=== PATIENT | female | born 1935 | race Caucasian/White ===

== ENCOUNTER 2016-03-04 22:05 | Inpatient (IN) | payer OTHER ==
[~2016-03-04] VITALS: Ht 172.7 cm; Wt 79.0 kg
[~2016-03-04 22:05] MED LIST: ACETAMINOPHEN-1 EAC1 PO; ACETAMINOPHEN-1 EAC4 PO; ADULT LOW STREN81 M2 PO; ASPIR 8181 M1 PO; ASPIR-TRIN325 M1 PO; ASPIRIN E.C.81 M1 PO; ASPIRIN81 M1 PO; ATARAX,VISTARIL25 MG PO; AUGMENTIN875 MG PO; BACTRIM,SEPT1 TABLET PO; BYSTOLIC10 MG PO; CARAFATE1 GM PO; CARTIA XT240 MG PO; CATAPRES0.2 MG PO; CELEXA10 MG PO; CLONIDINE HCL0.1 MG PO; CLONIDINE HCL0.2 MG PO; CLOPIDOGREL75 MG PO; CO Q-10100 MG PO; CRESTOR20 MG PO; CYMBALTA60 MG PO; Cardizem CD,Cartia X PO; Ceftin PO; Coreg PO; DOCUSATE SODIU100 MG PO; ENDOCET 5-3251 EACH PO; FLEXERIL10 MG PO; Flagyl PO; GLUCOSAMINE &1 EAC1 PO; GLUCOSAMINE PO; GLYCOLAX225 GM PO; HYDROCHLOROTH12.5 M3 PO; HYDROCHLOROTH12.5 MG PO; HYDROCODON-ACE1 EAC7 PO; HYDROCODON-ACE1 EAC8 PO; Hydrodiuril,Oretic,E PO; IMDUR30 MG PO; IMDUR60 MG PO; K-DUR10 MEQ PO; LABETALOL HCL100 MG PO; LASIX20 MG PO; LISINOPRIL20 MG PO; LISINOPRIL40 MG PO; LO-DOSE ASPIRIN81 M2 PO; Levaquin PO; Lopressor PO; METAMUCIL; METAMUCIL CAPSU1 CAP PO; METOPROLOL TART50 MG PO; MIRALAX17 GM PO; NEXIUM40 MG PO; NIFEDICAL XL30 MG PO; NIFEDIPINE ER60 MG PO; NITROGLYCERIN0.4 MG SL; NITROSTAT0.4 MG SL; NORCO 7.5/321 TABLET PO; OMEGA; OMEGA 3 1,0001 EAC1 PO; OMEGA 3 500 SO1 EACH PO; PERCOCET 5/31 TABLET PO; PLAVIX75 MG PO; PRINIVIL40 MG PO; PROCARDIA XL60 MG PO; Protonix PO; RANITIDINE HCL300 M1 PO; RHINOCORT AQUA8.6 G1 NS; STOOL SOFTENER100 MG PO; SUCRALFATE1 GM PO; SYSTANE 0.3-0.1 EACH BOTH EYES; TOPROL XL50 MG PO; VICODIN,LORT1 TABLET PO; VITAMIN D-32000 UNI2 PO; VITAMIN D2000 INTUN PO; ZESTRIL,PRINIVI20 MG PO; ZESTRIL40 MG PO; Zestril,Prinivil PO; Zithromax PO; [UNRECOGNIZED DRUG - OTHER] PO
[2016-03-04 22:50] LABS: HEMATOCRIT 34.3 % (36.0-46.0); MCH 28.4 PG (29.0-34.0); MCHC 33.2 G/DL (30.0-36.0); MCV 85.3 FL (83-99); MEAN PLAT.VOLUME 9.3 uM^3 (9.5-12.4); PLATELET COUNT 281 K/uL (156-360); RBC DIS.WIDTH-CV 14.2 % (11.8-14.6); RBC DIS.WIDTH-SD 43.5 % (39-53); RED BLOOD COUNT 4.02 M/uL (3.80-5.20); WHITE BLOOD COUNT 9.9 K/uL (4.1-10.2)
[2016-03-04 22:56] LABS: CHLORIDE 97 mEq/L (99-109)
[2016-03-04 22:57] LABS: POTASSIUM 4.2 mEq/L (3.7-5.4); SODIUM 131 mEq/L (136-147)
[2016-03-04 22:58] LABS: INTER. NORMALIZED RATIO 1.1; PROTHROMBIN TIME 10.8 (9.2-11.2); PTT 21.5 (25-32)
[2016-03-04 22:59] LABS: GLUCOSE 110 mg/dL (70-99)
[2016-03-04 23:00] LABS: ANION GAP 12 MEQ/L (2-14)
[2016-03-04 23:01] LABS: TOTAL BILIRUBIN 0.4 mg/dL (0.0-1.0)
[2016-03-04 23:02] LABS: ALKALINE PHOSPHATASE 61 IU/L (3-129); GFR ESTIMATE (CALCULATED) 11 mL/min/
[2016-03-04 23:06] LABS: LIPASE 34 U/L (1.0-51.0)
[2016-03-04 23:07] LABS: UREA NITROGEN (BUN) 36 mg/dL (9-23)
[2016-03-04 23:09] LABS: TROP-I INTERPRETATION NEGATIVE; TROPONIN-I 0.02 ng/mL (0.0-0.30)
[2016-03-05] MEDS ORDERED: METAMUCIL0.52 GM PO (00:01)
[2016-03-05] MEDS ORDERED: CITALOPRAM HBR10 MG PO (00:01)
[2016-03-05] MEDS ORDERED: OMEPRAZOLE40 M1 PO (00:02)
[2016-03-05] MEDS ORDERED: VERAPAMIL HCL120 M1 PO (00:02)
[2016-03-05 00:31] LABS: CREATINE KINASE 63 IU/L (1-294)
[2016-03-05 06:58] LABS: HEMATOCRIT 30.4 % (36.0-46.0); MCHC 32.9 G/DL (30.0-36.0); MCV 85.2 FL (83-99); MEAN PLAT.VOLUME 9.1 uM^3 (9.5-12.4); PLATELET COUNT 236 K/uL (156-360); RBC DIS.WIDTH-CV 14.3 % (11.8-14.6); RBC DIS.WIDTH-SD 43.7 % (39-53); RED BLOOD COUNT 3.57 M/uL (3.80-5.20)
[2016-03-05 07:35] LABS: TROP-I INTERPRETATION NEGATIVE; TROPONIN-I < 0.01 ng/mL (0.0-0.30)
[2016-03-05 07:41] LABS: ANION GAP 7 MEQ/L (2-14); CHLORIDE 104 MEQ/L (99-109); GLUCOSE 91 mg/dL (70-99); POTASSIUM 3.5 MEQ/L (3.7-5.4); SAMPLE HEMOLYSIS CHECK 0; SAMPLE ICTERIC CHECK 0; SAMPLE LIPEMIA CHECK 0; SODIUM 131 MEQ/L (136-147); UREA NITROGEN (BUN) 29 mg/dL (9-23)
[2016-03-05 07:42] LABS: GFR ESTIMATE (CALCULATED) 16 mL/min/
[2016-03-05 12:05] VITALS: BP 149/73
[2016-03-05 12:10] VITALS: BP 149/73
[2016-03-05 16:35] VITALS: BP 139/65
[2016-03-05 20:00] VITALS: BP 125/74
[2016-03-06] VITALS (7 sets, daily range): BP systolic 114–216; BP diastolic 70–110
[2016-03-06 06:14] LABS: EOSINOPHIL (%) 4.3 % (0-5); EOSINOPHIL COUNT 0.3 K/uL (0-0.3); HEMATOCRIT 35.6 % (36.0-46.0); IMMATURE GRANULOCYTE (%) 0.2 % (0.0-0.7); LYMPHOCYTE COUNT 1.2 K/uL (1.0-2.8); MCH 28.3 PG (29.0-34.0); MCHC 32.9 G/DL (30.0-36.0); MEAN PLAT.VOLUME 9.6 uM^3 (9.5-12.4); MONOCYTE (%) 7.8 % (3-12); MONOCYTE COUNT 0.5 K/uL (0-0.8); NEUTROPHIL (%) 67.5 % (45-76); PLATELET COUNT 240 K/uL (156-360); RBC DIS.WIDTH-CV 14.3 % (11.8-14.6); RBC DIS.WIDTH-SD 45.1 % (39-53); RED BLOOD COUNT 4.14 M/uL (3.80-5.20); WHITE BLOOD COUNT 5.9 K/uL (4.1-10.2)
[2016-03-06 06:45] LABS: ALKALINE PHOSPHATASE 58 IU/L (3-129); ANION GAP 9 MEQ/L (2-14); CHLORIDE 111 MEQ/L (99-109); GLUCOSE 90 mg/dL (70-99); SAMPLE HEMOLYSIS CHECK 0; SAMPLE ICTERIC CHECK 0; SAMPLE LIPEMIA CHECK 0; TOTAL BILIRUBIN 0.4 MG/DL (0.0-1.0); UREA NITROGEN (BUN) 20 mg/dL (9-23)
[2016-03-06 06:48] LABS: GFR ESTIMATE (CALCULATED) 33 mL/min/; POTASSIUM 4.6 MEQ/L (3.7-5.4); SODIUM 140 MEQ/L (136-147)
[2016-03-06 07:45] LABS: TROP-I INTERPRETATION NEGATIVE; TROPONIN-I < 0.01 ng/mL (0.0-0.30)
[2016-03-06 18:11] LABS: ADD MIUA? YES; BILIRUBIN NEGATIVE; BLOOD NEGATIVE; COLOR YELLOW ((YELLOW)); GLUCOSE (STRIP) NEGATIVE; KETONES NEGATIVE; LEUKOCYTES NEGATIVE; NITRITE NEGATIVE; PH, URINE 5.5 (5-8); PROTEIN (STRIP) NEGATIVE; SPECIFIC GRAVITY 1.012 (1.000-1.030); UROBILINOGEN 0.2 MG/DL (0.2-1.0)
[2016-03-06 18:43] LABS: BACTERIA NONE SEEN; CASTS NONE SEEN /LPF; CRYSTALS NONE SEEN; EPITHELIAL CELLS RARE; MUCUS NONE SEEN; UCUL ADDED? NO; WHITE BLOOD CELLS NONE SEEN /HPF (0-5)
[2016-03-07] VITALS: BP 118/72
[2016-03-07 04:00] VITALS: BP 135/62
[2016-03-07 06:05] LABS: ALKALINE PHOSPHATASE 44 IU/L (3-129); ANION GAP 4 MEQ/L (2-14); CHLORIDE 111 MEQ/L (99-109); GFR ESTIMATE (CALCULATED) 38 mL/min/; GLUCOSE 90 mg/dL (70-99); POTASSIUM 4.8 MEQ/L (3.7-5.4); SAMPLE HEMOLYSIS CHECK 0; SAMPLE ICTERIC CHECK 0; SAMPLE LIPEMIA CHECK 0; SODIUM 139 MEQ/L (136-147); TOTAL BILIRUBIN 0.4 MG/DL (0.0-1.0); UREA NITROGEN (BUN) 21 mg/dL (9-23)
[2016-03-07 06:14] LABS: EOSINOPHIL COUNT 0.2 K/uL (0-0.3); HEMATOCRIT 30.3 % (36.0-46.0); IMMATURE GRANULOCYTE (%) 0.2 % (0.0-0.7); LYMPHOCYTE COUNT 1.6 K/uL (1.0-2.8); MCH 28.2 PG (29.0-34.0); MCV 88.1 FL (83-99); MEAN PLAT.VOLUME 9.5 uM^3 (9.5-12.4); MONOCYTE (%) 7.9 % (3-12); MONOCYTE COUNT 0.4 K/uL (0-0.8); NEUTROPHIL (%) 57.4 % (45-76); PLATELET COUNT 219 K/uL (156-360); RBC DIS.WIDTH-CV 14.5 % (11.8-14.6); RBC DIS.WIDTH-SD 46.1 % (39-53); RED BLOOD COUNT 3.44 M/uL (3.80-5.20); WHITE BLOOD COUNT 5.2 K/uL (4.1-10.2)
[2016-03-07 09:00] VITALS: BP 128/86
== END 2016-03-07 12:05 | disposition home or self-care (01) | DRG 684 ==
LOC: EME 22:05 → EDOF 03-05 01:57 → 4EAST 03-05 11:46
PROVIDERS: Emergency Medicine; Hospitalist; Internal Medicine Critical Care Medicine
DX: N17.9 Acute kidney failure, unspecified (principal); I12.9 Hypertensive chronic kidney disease with stage 1 through stage 4 chronic kidney disease, or unspecified chronic kidney disease; R07.89 Other chest pain; R94.31 Abnormal electrocardiogram [ECG] [EKG]; E78.5 Hyperlipidemia, unspecified; G89.29 Other chronic pain; I25.10 Atherosclerotic heart disease of native coronary artery without angina pectoris; Z95.5 Presence of coronary angioplasty implant and graft; R11.2 Nausea with vomiting, unspecified; I95.9 Hypotension, unspecified; E87.6 Hypokalemia; E86.0 Dehydration; N18.3 Chronic kidney disease, stage 3 (moderate); F41.9 Anxiety disorder, unspecified; Z87.891 Personal history of nicotine dependence; N28.1 Cyst of kidney, acquired
CPT/HCPCS: 71010; 76770; 80048; 80053; 81003; 82550; 83605; 83690; 83880; 84484; 85025; 85027; 85610; 85730; 87040; 93005; 99281; 99285; J1644; J2405; J3480; J7030

== ENCOUNTER 2017-03-08 10:12 | Emergency (ER) | payer OTHER ==
[~2017-03-08] VITALS: Ht 154.9 cm; Wt 81.1 kg
[~2017-03-08 10:12] MED LIST changes: +CITALOPRAM HBR10 MG PO; +METAMUCIL0.52 GM PO; +OMEPRAZOLE40 M1 PO; +VERAPAMIL HCL120 M1 PO
[2017-03-08 10:58] LABS: BASOPHIL (%) 0.3 % (0-1); EOSINOPHIL (%) 1.7 % (0-5); EOSINOPHIL COUNT 0.1 K/uL (0-0.3); HEMATOCRIT 35.5 % (36.0-46.0); HEMOGLOBIN 11.3 G/DL (11.9-15.5); IMMATURE GRANULOCYTE (%) 0.3 % (0.0-0.7); LYMPHOCYTE (%) 12.9 % (15-42); LYMPHOCYTE COUNT 0.8 K/uL (1.0-2.8); MCH 27.9 PG (29.0-34.0); MCHC 31.8 G/DL (30.0-36.0); MCV 87.7 FL (83-99); MONOCYTE (%) 5.7 % (3-12); MONOCYTE COUNT 0.3 K/uL (0-0.8); NEUTROPHIL (%) 79.1 % (45-76); NEUTROPHIL COUNT 4.7 K/uL (1.8-6.4); PLATELET COUNT 173 K/uL (156-360); RBC DIS.WIDTH-CV 13.8 % (11.8-14.6); RBC DIS.WIDTH-SD 44.6 % (39-53); RED BLOOD COUNT 4.05 M/uL (3.80-5.20)
[2017-03-08 11:14] LABS: CHLORIDE 107 mEq/L (99-109); POTASSIUM 4.1 mEq/L (3.7-5.4); SODIUM 138 mEq/L (136-147)
[2017-03-08 11:17] LABS: GLUCOSE 114 mg/dL (70-99); TOTAL PROTEIN 6.9 g/dL (6.4-8.3)
[2017-03-08 11:19] LABS: TOTAL BILIRUBIN 0.4 mg/dL (0.0-1.0)
[2017-03-08 11:20] LABS: ALKALINE PHOSPHATASE 78 IU/L (3-129); CREATININE 1.3 mg/dL (0.6-1.3); GFR ESTIMATE (CALCULATED) 42 mL/min/
[2017-03-08 11:20] LABS: TROP-I INTERPRETATION NEGATIVE; TROPONIN-I < 0.01 ng/mL (0.0-0.30)
[2017-03-08 11:21] LABS: UREA NITROGEN (BUN) 21 mg/dL (9-23)
[2017-03-08 11:22] LABS: AST (GOT) 12 IU/L (2-34); DIRECT BILIRUBIN 0.1 mg/dL (0.0-0.3)
[2017-03-08 11:23] LABS: ALT (GPT) 12 IU/L (3-49)
[2017-03-08 12:10] LABS: APPEARANCE CLEAR ((CLEAR)); BILIRUBIN NEGATIVE; BLOOD NEGATIVE; COLOR STRAW ((YELLOW)); GLUCOSE (STRIP) NEGATIVE; KETONES NEGATIVE; LEUKOCYTES TRACE; NITRITE NEGATIVE; PROTEIN (STRIP) NEGATIVE; SPECIFIC GRAVITY 1.005 (1.000-1.030); UROBILINOGEN 0.2 MG/DL (0.2-1.0)
[2017-03-08 12:13] LABS: BACTERIA RARE /HPF; EPITHELIAL CELLS RARE /HPF; MUCUS NONE SEEN /LPF; RED BLOOD CELLS 0-5 /HPF (0-5); UCUL ADDED? NO; WHITE BLOOD CELLS 0-5 /HPF (0-5)
[2017-03-08 13:30] VITALS: BP 143/72
[2017-03-08] MEDS ORDERED: SENNA8.6 MG PO (14:18)
== END 2017-03-08 16:01 | disposition home or self-care (01) ==
LOC: EME 10:12
PROVIDERS: Emergency Medicine
DX: K59.00 Constipation, unspecified (principal); I12.9 Hypertensive chronic kidney disease with stage 1 through stage 4 chronic kidney disease, or unspecified chronic kidney disease; N18.9 Chronic kidney disease, unspecified; G89.29 Other chronic pain; Z79.891 Long term (current) use of opiate analgesic; E78.5 Hyperlipidemia, unspecified; I25.2 Old myocardial infarction; F32.9 Major depressive disorder, single episode, unspecified; K21.9 Gastro-esophageal reflux disease without esophagitis; F41.9 Anxiety disorder, unspecified; Z95.5 Presence of coronary angioplasty implant and graft; Z79.82 Long term (current) use of aspirin; Z87.891 Personal history of nicotine dependence; Z88.8 Allergy status to other drugs, medicaments and biological substances
CPT/HCPCS: 71046; 74177; 80048; 80076; 81003; 83605; 84484; 85025; 93005; 99281; 99284; J7030